=== PATIENT | male | born 1935 | race Caucasian/White ===

== ENCOUNTER → 2024-10-05 06:51 | Outpatient (REF) | payer MEDICARE, OTHER, SELFPAY | LOC: HWRCS 06:51 | PROVIDERS: ATTENDING PHYSICIAN Family Medicine | DX: R01.1 Cardiac murmur, unspecified (principal) | CPT/HCPCS: 93306 ==

== ENCOUNTER → 2025-06-23 10:14 | Outpatient (REF) | payer MEDICARE, OTHER, SELFPAY ==
[2025-06-23 12:52] LABS: ALT (SGPT) 25 U/L (0-50); AST (SGOT) 24 U/L (17-59); Albumin 4.1 g/dl (3.5-5.0); Alkaline Phosphatase 73 U/L (38-126); Blood Urea Nitrogen 27 mg/dl (9-20); Calcium 9.4 mg/dl (8.4-10.2); Carbon Dioxide 25 mmol/L (22-30); Chloride 108 mmol/L (98-107); Glucose 113 mg/dl (70-99); Potassium 4.5 mmol/L (3.5-5.1); Sodium 138 mmol/L (135-145); Total Protein 7.3 g/dl (6.3-8.2); Uric Acid 9.0 mg/dl (3.5-8.5); eGFR 58.53
[2025-06-23 12:55] LABS: C-Reactive Protein 8.30 mg/L (0.0-10.00)
== END ==
LOC: HWLAB 10:14
PROVIDERS: ATTENDING PHYSICIAN Internal Medicine Rheumatology; FAMILY PHYSICIAN Family Medicine
DX: M25.551 Pain in right hip (principal); M10.9 Gout, unspecified; Z51.81 Encounter for therapeutic drug level monitoring
CPT/HCPCS: 36415; 73502; 80053; 84550; 85652; 86140

== ENCOUNTER → 2025-06-24 14:49 | Outpatient (REF) | payer MEDICARE, OTHER, SELFPAY | LOC: HWRAD 14:49 | PROVIDERS: ATTENDING PHYSICIAN Internal Medicine Rheumatology; FAMILY PHYSICIAN Family Medicine | DX: M16.11 Unilateral primary osteoarthritis, right hip (principal); M25.559 Pain in unspecified hip | CPT/HCPCS: 73502 ==